=== PATIENT | male | born 2000 | race Two or more races ===

== ENCOUNTER 2020-07-13 04:47 | Emergency (ER) | payer MEDICAID, OTHER ==
[~2020-07-13] VITALS: Ht 182.9 cm; Wt 72.6 kg
[2020-07-13 05:09] VITALS: BP 163/106
[2020-07-13] MEDS ORDERED: KETOROLAC TROMETH 60MG/2ML VIAL IM ONE (05:15)
== END 2020-07-13 07:15 | disposition home or self-care (01) ==
LOC: ER 04:47
DX: R07.89 Other chest pain (principal); Z20.822 Contact with and (suspected) exposure to COVID-19
CPT/HCPCS: 36415; 71045; 85379; 87426; 93005; 96372; 99285; J1885